=== PATIENT | male | born 1970 | race Caucasian/White ===

== ENCOUNTER 2025-03-27 14:26 | Emergency (ER) | payer MEDICARE, SELFPAY ==
[2025-03-27 14:27] VITALS: BP 126/77
--- NOTE | 2025-03-27 15:14 | ED.GENMED ---
History of Present Illness
General
Chief Complaint: Musculo-Skeletal Complaint
Source: patient
Exam Limitations: none
Time Seen by Provider: 03/27/25 14:55
Nursing documentation reviewed up to this point in time: agreed with
History of Present Illness
History of Present Illness:
see MDM
Past History
Past History
ED Past Medical History: Other (Depression, psoriatic arthritis b/l foot pain, GIB) and Other (pancreatitis, SRIKANTH/pyelo)
ED Past Surgical History: Other (foot sx)
Social History
Tobacco: Former smoker
Alcohol: Occasional
Drug: None
Personal: Single
Living: with family
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
Family History
Family History: Other (n/c)
Review of Systems
Review of Systems
Allergies reviewed?: Yes
All Other Systems: Not applicable
Phy Exam
Physical Exam
Physical Exam:
GENERAL: Alert , in no apparent distress, comfortable at rest
HEAD: NCAT
CV: cap refill intact
NEUROLOGICAL: Alert and oriented, no focal neuro deficits, , 5/5 strength, sensation intact,
SKIN: Warm and dry, puncture with retanied FB to dorsum of R hand thrtough and through dorsum diagonal from 4th MCP to more proximal 4th metacarpal;
MUSCULOSKELETAL: dorsal fb skin
superficial
full ROM of th efinger
nomrla sensation and strength
PSYCH: Normal and appropriate interaction.
Course
Orders/Labs/Results
Orders:
Orders
03/27/25 15:10
Cephalexin Monohydrate [Keflex] 500 mg PO NOW STA
Tetanus/Diphth/Acelpertussis [Adacel] 0.5 ml IM .ONCE ONE
Vital Signs
Initial and Last Documented VS:
Initial Vital Signs
Temp Pulse Resp BP Pulse Ox
36.3 C 81 15 126/77 98
03/27/25 14:27 03/27/25 14:27 03/27/25 14:27 03/27/25 14:27 03/27/25 14:27
Last Documented Vital Signs
Temp Pulse Resp BP Pulse Ox
36.3 C 81 15 126/77 98
03/27/25 14:27 03/27/25 14:27 03/27/25 14:27 03/27/25 14:27 03/27/25 14:27
MDM/Problems Addressed
Differential Diagnosis Includes:
see mdm
MDM/Problems Addressed:
Note:
CHIEF COMPLAINT(S)
Foreign body in the right hand.
HISTORY OF PRESENT ILLNESS
The patient is a 54-year-old male who presents with a foreign body embedded in his right hand. The incident occurred while working on his property. He removed his gloves and went to put them on a wooden shelf and accidentally got a splinter in the
dorsum of his right hand along the 4th finger .The patient describes an attempt to remove the object himself, without success. He reports that the object is visible and protruding, likening it to an arrow. Despite the foreign body, he maintains full
range of motion and sensation. There is pain associated with the site. The patient denies any significant medical problems aside from psoriatic arthritis, for which he is on leflunomide. He denies any allergies. The patients last tetanus vaccination
is uncertain, indicating a need for an update.
SOCIAL DETERMINANTS AFFECTING HEALTH
The patient reports work-related stress and fatigue from insufficient sleep.
ALLERGIES
None reported.
PAST MEDICAL HISTORY
Psoriatic arthritis.
MEDICATIONS
Leflunomide.
REVIEW OF SYSTEMS
- Musculoskeletal: Foreign body penetration with full range of motion and sensation, pain present.
- General: Fatigue attributed to insufficient sleep.
PHYSICAL EXAM
- Nursing notes reviewed and vital signs reviewed.
PLAN
The plan involves numbing the patients finger to remove the foreign body and thoroughly cleaning the wound. Initiation of antibiotic therapy will be considered. The patient will also be advised to receive a tetanus vaccination.
DIFFERENTIAL DIAGNOSIS
The Differential Diagnosis includes, in no particular order and is not limited to:
1. Foreign body penetration injury
2. Tendon injury
3. Nerve injury
puncture wound
54 y/o M
right hand dominant with wooden splinter in dorsum of R hand 4th MCP region
ful rom
normal sensation
irrigated
local lidocaine 1% without epi
small extension of the wound distally to allow me to pull the wood out
irrigtaed and soaked in betadine saline solution
dressed bacitracin dressing
tetanus
keflex
*Pulse Oximetry
SaO2: 98
Oxygen Mode of Delivery: Room air
Patient hypoxic: no
Comment: 98
*Critical Care Note
Total Time (30-74mins, 75-104mins- exclusive of procedures): Not Applicable
ED Attending Note
-
Portions of this chart may have been created with voice recognition software.� Occasional wrong word or��sound alike� substitutions may have occurred due to the inherent limitations of voice recognition software.
Discharge Plan
Departure
Patient Disposition: Home (Routine Discharge)
Date of Disposition: 03/27/25
Time of Disposition: 15:25
Patient with high blood pressure during this ER visit?: No
Condition: Fair
Covid-19: Not Applicable
Discharge Problem:
Puncture wound of hand, Foreign body hand
Instructions: Wound care - ED discharge instructions, Puncture Wound
Prescriptions:
New
cephalexin 500 mg capsule
500 mg PO QID Qty: 28 0RF
No Action
pregabalin [Lyrica] 150 mg Capsule
150 mg PO TID
acetaminophen [acetaminophen] 325 mg tablet
650 mg PO Q4HPRN PRN (Reason: mild pain) Qty: 1 0RF
ibuprofen 200 mg tablet
400 - 600 mg PO Q6HPRN PRN (Reason: moderate pain) Qty: 1 0RF
oxycodone 5 mg tablet
5 mg PO Q4HPRN PRN (Reason: breakthrough/severe pain) Qty: 10 0RF
Referrals:
Aditya Harris MD [Active, Orthopedics] - Follow up in 5-7 days
Activity Restrictions/Additional Instructions:
Wash the wound twice a day with soap and water. Apply Neosporin and a dressing or Band-Aid. Watch for drainage, swelling, streaking redness, inability to move your finger and return to the ER as needed for those. You can also follow-up with a
hand doctor.
Interventions
Interventions:
*Risk Screen - Suicide Last Done: 03/27/25 14:27
*General Assessment Last Done: 03/27/25 14:27
Discharge Date and Time
Print Language: URDU
[2025-03-27] MEDS: KEFLEX 500 MG PO (15:43)
[2025-03-27] MEDS: ADACEL 0.5 ML IM (15:44)
[2025-03-27 15:58] VITALS: BP 119/71
== END 2025-03-27 15:55 | disposition home or self-care (01) ==
LOC: EMR 14:26
PROVIDERS: EMERGENCY PHYSICIAN Emergency Medicine; FAMILY PHYSICIAN Family Medicine
DX: S61.441A Puncture wound with foreign body of right hand, initial encounter (principal); W45.8XXA Other foreign body or object entering through skin, initial encounter; L40.50 Arthropathic psoriasis, unspecified; Z23 Encounter for immunization; F32.A Depression, unspecified; Z87.891 Personal history of nicotine dependence
CPT/HCPCS: 99282; 90471; 90715

== ENCOUNTER → 2025-04-25 12:47 | Outpatient (REF) | payer MEDICARE, SELFPAY | LOC: RAD 12:47 | PROVIDERS: ATTENDING PHYSICIAN Family Medicine | DX: R19.00 Intra-abdominal and pelvic swelling, mass and lump, unspecified site (principal); N50.89 Other specified disorders of the male genital organs; M79.604 Pain in right leg | CPT/HCPCS: 76870; 76882; 93976 ==

== ENCOUNTER 2025-06-25 15:20 | Emergency (ER) | payer MEDICARE, SELFPAY ==
[2025-06-25 15:23] VITALS: BP 122/85
--- NOTE | 2025-06-25 20:11 | ED.GENMED ---
History of Present Illness
General
Chief Complaint: Fall
Time Seen by Provider: 06/25/25 20:10
History of Present Illness
History of Present Illness:
FOCUSED PAST MEDICAL HISTORY
- GERD, anxiety/depression, substance use, alcohol abuse
REVIEW OF OLD RECORDS
- I reviewed records, the patient had inguinal hernia repair in [address] Bella
Note:
CHIEF COMPLAINT(S)
Leg injury with associated bruising and tenderness.
HISTORY OF PRESENT ILLNESS
The patient is a 54-year-old male who presented to the emergency department following a fall in his workshop. The incident occurred when the patient tripped over some metal, morena to chicken wire, which resulted in him falling and landing on the back
of a hydraulic stabilizing leg. He reported immediate awareness of potential injury. Upon examination, notable bruising was observed down the area of impact.
The patient underwent an x-ray, which was previously reviewed by a radiologist. There is an absence of a recent fracture; however, there was a suggestion of a possible old fracture in the fibula, though no definitive new fracture was identified. The
injury predominantly involves the soft tissue, with no bone involvement, indicating likely contusion and a subcutaneous hematoma.
The patient describes tenderness at the anterior lower weir on the left side, but no additional injuries were reported to the hips, abdomen, or other areas of the body. He reported no pain in other parts of the leg or ankle. Given the nature of the
incident and the physical findings, the injury has resulted in localized discomfort, attributed to a collection of blood under the skin rather than internal blood clots.
PHYSICAL EXAM
General: Alert, no acute distress.
Skin: Bruising noted on the lower weir area, left leg, tender to palpation.
Head: Normocephalic, atraumatic.
Neck: Supple, trachea midline.
Eye Ears, nose, mouth and throat: Oral mucosa moist.
Cardiovascular: Normal peripheral perfusion, No edema.
Respiratory: Respirations are non-labored.
Gastrointestinal: Abdomen nondistended.
Back: Normal range of motion, Normal alignment.
Musculoskeletal: Tenderness at the anterior lower weir on the left, otherwise normal range of motion and normal strength.
Neurological: Alert and oriented to person, place, time, and situation, No focal neurological deficit observed.
Psychiatric: Cooperative, appropriate mood & affect.
PROBLEM LIST
Acute Injury: Contusion and subcutaneous hematoma of the left lower leg following fall.
PLAN
Recommend keeping the leg elevated at night to reduce swelling.
Apply ice to the injured area at home to minimize discomfort and further swelling.
[id number] pain management such as acetaminophen may be used if needed.
DIFFERENTIAL DIAGNOSIS
The Differential Diagnosis includes, in no particular order and is not limited to:
1. Contusion of the lower extremity
2. Subcutaneous hematoma
3. Hematoma secondary to soft tissue injury
4. Soft tissue strain or sprain
5. Ligament or tendon injury
6. Previous undiagnosed fracture
7. Osteomyelitis
8. Muscle tear or strain
9. Cellulitis
10. Deep vein thrombosis (although less likely given the current symptoms and scenario)
Disposition:
SUMMARY OF ENCOUNTER
The patient is a 54-year-old male who presented to the emergency department following a fall in his workshop. He tripped over some metal and landed on the back of a hydraulic stabilizing leg. Upon examination, there was significant bruising and
tenderness on the anterior lower weir of the left leg. An x-ray of the left leg was conducted, revealing no acute fracture, although there was a suggestion of an old injury at the proximal fibula. The clinical impression is more in line with a soft
tissue injury, such as a contusion, rather than a fracture. Based on the findings, it was recommended that the patient apply ice and keep the leg elevated to reduce swelling.
DISPOSITION
Discharge
ASSESSMENT
The patient likely has a contusion of the left lower leg with a subcutaneous hematoma.
PLAN
Recommend keeping the leg elevated at night to reduce swelling. Apply ice to the injured area to minimize discomfort and further swelling. [id number] pain management such as acetaminophen may be used if needed.
INDEPENDENT REVIEW OF LABS AND INTERPRETATION OF TESTS
My independent interpretation of the x-ray shows no acute fracture in the left leg but a suggestion of an old injury at the proximal fibula.
PATIENT EDUCATION AND COUNSELING
The patient was educated on the importance of applying ice to the injury, elevating the leg to reduce swelling, and using yzri-kis-arniygf pain medication for management. The patient was advised that the injury mainly involved soft tissue and not
bone.
FOLLOW-UP INSTRUCTIONS
Advised to follow up with primary care if symptoms do not improve or if pain and swelling persist.
MEDICAL DECISION MAKING
-Complexity of Data Reviewed: Acute Injury and potential past injury affecting current care. Differential diagnosis includes contusion of the lower extremity, subcutaneous hematoma, hematoma secondary to soft tissue injury, soft tissue strain or
sprain, ligament or tendon injury, previous undiagnosed fracture.
-Data:
Category 1
My independent interpretation of the x-ray of the left leg indicates no acute fracture, suggesting a contusion and an old injury at the proximal fibula.
-Risk:
Prescription medication was considered, but ultimately not given after discussion with patient/family.
DIAGNOSIS
Contusion of the left lower leg (ICD-10: S80.12XA)
Subcutaneous hematoma of the left lower leg (ICD-10: M79.81)
RADIOLOGY
- Left tib-fib x-ray shows degenerative changes but no clear sign of fracture proximal fibula suggests old fracture at that site
Past History
Past History
ED Past Medical History: Other (Depression, psoriatic arthritis b/l foot pain, GIB) and Other (pancreatitis, SRIKANTH/pyelo)
ED Past Surgical History: Other (foot sx)
Social History
Tobacco: Former smoker
Alcohol: Occasional
Drug: None
Personal: Single
Living: with family
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
Family History
Family History: Other (n/c)
Phy Exam
Physical Exam
Physical Exam:
See HPI
Course
Orders/Labs/Results
Orders:
Orders
06/25/25 15:25
CR Leg Tibia/fibula Left 2 Vw Urgent
Comment:
Reason For Exam: injury
Vital Signs
Initial and Last Documented VS:
Initial Vital Signs
Temp Pulse Resp BP Pulse Ox
36.8 C 84 20 122/85 98
06/25/25 15:23 06/25/25 15:23 06/25/25 15:23 06/25/25 15:23 06/25/25 15:23
Last Documented Vital Signs
Temp Pulse Resp BP Pulse Ox
36.8 C 84 20 122/85 98
06/25/25 15:23 06/25/25 15:23 06/25/25 15:23 06/25/25 15:23 06/25/25 20:13
*Pulse Oximetry
SaO2: 98
Oxygen Mode of Delivery: Room air
Patient hypoxic: no
*Critical Care Note
Total Time (30-74mins, 75-104mins- exclusive of procedures): Not Applicable
ED Attending Note
-
Portions of this chart may have been created with voice recognition software.� Occasional wrong word or��sound alike� substitutions may have occurred due to the inherent limitations of voice recognition software.
Discharge Plan
Departure
Patient Disposition: Home (Routine Discharge)
Date of Disposition: 06/25/25
Time of Disposition: 20:16
Patient with high blood pressure during this ER visit?: Yes
Discharge Problem:
Contusion of left lower leg
Instructions: Contusion (DC), BLOOD PRESSURE
Prescriptions:
No Action
pregabalin [Lyrica] 150 mg Capsule
150 mg PO TID
acetaminophen [acetaminophen] 325 mg tablet
650 mg PO Q4HPRN PRN (Reason: mild pain) Qty: 1 0RF
ibuprofen 200 mg tablet
400 - 600 mg PO Q6HPRN PRN (Reason: moderate pain) Qty: 1 0RF
oxycodone 5 mg tablet
5 mg PO Q4HPRN PRN (Reason: breakthrough/severe pain) Qty: 10 0RF
cephalexin 500 mg capsule
500 mg PO QID Qty: 28 0RF
Activity Restrictions/Additional Instructions:
The x-ray shows no sign of an acute fracture. I recommend Tylenol at home and/or ibuprofen. Try to keep the leg elevated tonight and use ice to the affected area intermittently. Return here if worse or other concerns.
Interventions
Interventions:
*General Assessment Last Done: 06/25/25 15:23
*Neglect/Abuse Screening Last Done: 06/25/25 20:07
*ED- Fall Risk Assessment Last Done: 06/25/25 20:07
*Nursing Disposition Last Done: 06/25/25 18:45
ED-Musculoskeletal Assessment Last Done: 06/25/25 20:07
ED- Neurological Assessment Last Done: 06/25/25 20:07
ED-Skin Assessment Last Done: 06/25/25 20:07
Discharge Date and Time
Print Language: BELARUSIAN
== END 2025-06-25 20:44 | disposition home or self-care (01) ==
LOC: EMR 15:20
PROVIDERS: EMERGENCY PHYSICIAN Emergency Medicine; FAMILY PHYSICIAN Family Medicine
DX: S80.12XA Contusion of left lower leg, initial encounter (principal); R03.0 Elevated blood-pressure reading, without diagnosis of hypertension; K21.9 Gastro-esophageal reflux disease without esophagitis; L40.50 Arthropathic psoriasis, unspecified; F41.9 Anxiety disorder, unspecified; F32.A Depression, unspecified; F10.10 Alcohol abuse, uncomplicated; Z87.891 Personal history of nicotine dependence; W18.09XA Striking against other object with subsequent fall, initial encounter; Y92.69 Other specified industrial and construction area as the place of occurrence of the external cause
CPT/HCPCS: 99283; 73590